=== PATIENT | male | born 1945 | race Caucasian/White ===

== ENCOUNTER 2022-08-14 13:02 | Emergency (ER) | payer MEDICARE ==
[~2022-08-14] VITALS: Ht 190.5 cm; Wt 83.9 kg
[~2022-08-14 13:02] MED LIST: ANTIBIOTIC PO; ASPI325 PO; ASPI81CH PO; B-121000 MC2 PO; CEPH500 PO; CHOL10002 PO; CIPR500 PO; Cipro500 MG PO; Crestor20 MG PO; ELIQUIS5 MG PO; HYDACE5 PO; LUPRON INJ; METO25 PO; METO25ER PO; MONOSTAT; NAPR500 PO; OXYACE5T PO; ROSU10TA PO; STOOL SOFTENER; SULTRIDS PO; WARF5 PO; WARF7.5 PO
[2022-08-14] MEDS ORDERED: CEPH500 PO ×2 (13:59→15:38)
[2022-08-14] MEDS ORDERED: XARELTO20 M1 PO (13:59)
== END 2022-08-14 15:45 | disposition home or self-care (01) ==
LOC: ER 13:02
DX: S61.241A Puncture wound with foreign body of left index finger without damage to nail, initial encounter (principal); W45.0XXA Nail entering through skin, initial encounter; W29.4XXA Contact with nail gun, initial encounter; Z87.891 Personal history of nicotine dependence; Z23 Encounter for immunization
CPT/HCPCS: 73140; 90714

== ENCOUNTER 2023-03-27 02:30 | Inpatient (IN) | payer MEDICARE ==
[~2023-03-27] VITALS: Ht 190.5 cm; Wt 86.2 kg
[~2023-03-27 02:30] MED LIST changes: +XARELTO20 M1 PO
[2023-03-27 05:27] LABS: Source, Urine Clean Catch
[2023-03-27 05:35] LABS: Appearance, Urine Cloudy (Clear); Bilirubin, Urine Neg (Neg); Blood, Urine 5+ (Neg); Color, Urine Yellow (P-Yellow); Glucose Qualitative, Urine Neg (Neg); Ketones, Urine 3+ (Neg); Leukocyte Esterase, Urine 3+ (Neg); Nitrite, Urine Neg (Neg); Protein, Urine 3+ (Neg); Urobilinogen, Urine NORM (Normal)
[2023-03-27 05:46] LABS: BASOPHILS ABSOLUTE AUTO 0.03 K/mm3 (0.00-0.23); BASOPHILS PERCENT AUTO 0 % (0-2); EOSINOPHILS ABSOLUTE AUTO 0.01 K/mm3 (0.00-0.68); EOSINOPHILS PERCENT AUTO 0 % (0-6); IMMATURE GRAN ABSOLUTE AUTO 0.07 K/mm3 (0.00-0.10); IMMATURE GRAN PERCENT AUTO 0 % (0-1); LYMPHOCYTES ABSOLUTE AUTO 0.89 K/mm3 (0.84-5.20); LYMPHOCYTES PERCENT AUTO 5 % (21-46); MONOCYTES ABSOLUTE AUTO 1.91 K/mm3 (0.16-1.47); MONOCYTES PERCENT AUTO 12 % (4-13); Mean Corpuscular HGB 28.1 pg (26.0-34.0); Mean Corpuscular HGB Conc 33.3 g/dL (31.5-36.5); Mean Corpuscular Volume 84 fL (80-100); Mean Platelet Volume 11.5 fL (9.1-12.4); NEUTROPHILS ABSOLUTE AUTO 13.61 K/mm3 (1.96-9.15); NEUTROPHILS PERCENT AUTO 82 % (41-73); Platelet Count 160 K/mm3 (150-400); RDW Coefficient Variation 13.8 % (11.7-14.2); RDW Standard Deviation 42.5 fL (35.1-46.3); White Blood Cell Count 16.52 K/mm3 (4.00-11.30)
[2023-03-27 06:01] LABS: Bacteria Many /hpf; Red Blood Cells, Urine 25-50 /hpf (0-2); Squamous Epithelial Cells Rare /hpf (Few)
[2023-03-27 06:04] LABS: Triple Phosphate Crystals Mod /hpf
[2023-03-27 06:20] LABS: Albumin, Blood 3.2 g/dL (3.4-5.0); Albumin/Globulin Ratio 0.8 (0.8-1.8); Bun/Creatinine Ratio 15.1 (12.0-20.0); Calcium, Blood 8.7 mg/dL (8.5-10.1); Creatinine, Blood 1.59 mg/dL (0.60-1.20); Globulin, Blood 3.9 g/dL (2.2-4.0); Potassium, Blood 4.4 mmol/L (3.5-5.5); Total Protein, Blood 7.1 g/dL (6.4-8.2)
[2023-03-27 13:53] VITALS: BP 166/65
--- NOTE | 2023-03-27 13:57 | NUR ---
ER ADMIT REPORT RECEIVED FROM ER. PT ALERT AND ORIENTED. DENIED DISCOMFORT UPON ARRIVED TO RM 324. PT ABLE TO TRANSFER SELF TO NEW BED. DENIED DIZZINESS. VSS. IVF INFUSING AT 75 ML/HR. CONTINUE POC.
[2023-03-27 15:53] VITALS: BP 134/62
[2023-03-27 20:04] VITALS: BP 143/51
[2023-03-28 03:53] VITALS: BP 169/76
--- NOTE | 2023-03-28 04:11 | NUR ---
SHIFT SUMMARY PATIENT HAD NO ACUTE CHANGES. AXOX 4 AND SBA TO BSC. UROSTOMY INTACT AND PATIENT REPORTS SELF CARE. FLANK PAIN X ONE AND NORCO GIVEN PER EMAR. DENIES CHEST PAIN, SOB, AND N/V. LOW GRADE TEMP. NPO FOR POSSIBLE PROCEDURE TODAY. SLEPT MOST OF SHIFT. COOPERATIVE WITH CARE. CALL LIGHT IN REACH. BED IN LOWEST POSITION. WILL CONTINUE TO MONITOR UNTIL DAY SHIFT NURSE ASSUMES CARE.
[2023-03-28 05:45] LABS: BASOPHILS ABSOLUTE AUTO 0.05 K/mm3 (0.00-0.23); BASOPHILS PERCENT AUTO 0 % (0-2); EOSINOPHILS ABSOLUTE AUTO 0.07 K/mm3 (0.00-0.68); EOSINOPHILS PERCENT AUTO 1 % (0-6); Hematocrit 48.5 % (37.0-53.0); Hemoglobin 16.1 g/dL (13.5-17.5); IMMATURE GRAN ABSOLUTE AUTO 0.09 K/mm3 (0.00-0.10); IMMATURE GRAN PERCENT AUTO 1 % (0-1); LYMPHOCYTES ABSOLUTE AUTO 0.95 K/mm3 (0.84-5.20); LYMPHOCYTES PERCENT AUTO 8 % (21-46); MONOCYTES PERCENT AUTO 18 % (4-13); Mean Corpuscular HGB 28.1 pg (26.0-34.0); Mean Corpuscular HGB Conc 33.2 g/dL (31.5-36.5); Mean Corpuscular Volume 85 fL (80-100); Mean Platelet Volume 12.1 fL (9.1-12.4); NEUTROPHILS ABSOLUTE AUTO 8.49 K/mm3 (1.96-9.15); NEUTROPHILS PERCENT AUTO 72 % (41-73); Platelet Count 107 K/mm3 (150-400); RDW Coefficient Variation 13.8 % (11.7-14.2); RDW Standard Deviation 42.5 fL (35.1-46.3); Red Blood Cell Count 5.73 M/mm3 (4.30-5.90); White Blood Cell Count 11.75 K/mm3 (4.00-11.30)
[2023-03-28 05:50] LABS: Bun/Creatinine Ratio 17.3 (12.0-20.0); Calcium, Blood 8.7 mg/dL (8.5-10.1); Creatinine, Blood 1.5 mg/dL (0.60-1.20); Potassium, Blood 4.4 mmol/L (3.5-5.5)
[2023-03-28 07:32] VITALS: BP 153/75
[2023-03-28 15:41] VITALS: BP 141/80
--- NOTE | 2023-03-28 16:24 | NUR ---
NOTE PT ALERT. AT BEDSIDE. DR GRECO CALLED DR ALCANTAR. HE WAS UNAWARE THAT HE WAS NEEDED TODAY. DR ALCANTAR WILL SEE PT IN THE MORNING. NPO AFTER MIDNIGHT. HAVE NOT NEEDED TO MEDICATE PT FOR PAIN AT ALL TODAY. HE HAS BEEN UP AD JESIKA. IS BRINGING IN HIS NIGHT BAG AND A SPARE APPLIANCE FOR HIS UROSTOMY. REGULAR DIET. CONTINUE POC.
[2023-03-28 19:36] VITALS: BP 128/64
--- NOTE | 2023-03-29 04:11 | NUR ---
SHIFT SUMMARY PATIENT HAD NO ACUTE CHANGES. AXOX 4 AND INDEPENDENT IN ROOM. UROSTOMY INTACT AND SELF CARE. NPO FOR POSSIBLE PROCEDURE TODAY. VSS/AFEBRILE. DENIES CHEST PAIN, SOB, AND N/V. REPORTED FLANK PAIN AND NORCO GIVEN PER EMAR. CALL LIGHT IN REACH. BED IN LOWEST POSITION. WILL CONTINUE TO MONITOR UNTIL DAY SHIFT NURSE ASSUMES CARE.
[2023-03-29 05:21] VITALS: BP 123/84
[2023-03-29 05:37] LABS: BASOPHILS ABSOLUTE AUTO 0.04 K/mm3 (0.00-0.23); BASOPHILS PERCENT AUTO 0 % (0-2); EOSINOPHILS ABSOLUTE AUTO 0.01 K/mm3 (0.00-0.68); EOSINOPHILS PERCENT AUTO 0 % (0-6); Hematocrit 46.9 % (37.0-53.0); Hemoglobin 15.7 g/dL (13.5-17.5); IMMATURE GRAN ABSOLUTE AUTO 0.03 K/mm3 (0.00-0.10); IMMATURE GRAN PERCENT AUTO 0 % (0-1); LYMPHOCYTES ABSOLUTE AUTO 0.62 K/mm3 (0.84-5.20); LYMPHOCYTES PERCENT AUTO 6 % (21-46); MONOCYTES ABSOLUTE AUTO 1.79 K/mm3 (0.16-1.47); MONOCYTES PERCENT AUTO 18 % (4-13); Mean Corpuscular HGB Conc 33.5 g/dL (31.5-36.5); Mean Corpuscular Volume 84 fL (80-100); Mean Platelet Volume 12.2 fL (9.1-12.4); NEUTROPHILS ABSOLUTE AUTO 7.68 K/mm3 (1.96-9.15); NEUTROPHILS PERCENT AUTO 76 % (41-73); Platelet Count 153 K/mm3 (150-400); RDW Coefficient Variation 13.5 % (11.7-14.2); RDW Standard Deviation 41.5 fL (35.1-46.3); Red Blood Cell Count 5.61 M/mm3 (4.30-5.90); White Blood Cell Count 10.17 K/mm3 (4.00-11.30)
[2023-03-29 06:01] LABS: Bun/Creatinine Ratio 23.4 (12.0-20.0); Calcium, Blood 8.8 mg/dL (8.5-10.1); Creatinine, Blood 1.37 mg/dL (0.60-1.20); Potassium, Blood 4.1 mmol/L (3.5-5.5)
[2023-03-29 07:49] VITALS: BP 122/68
[2023-03-29 15:30] VITALS: BP 127/67
[2023-03-29 19:20] VITALS: BP 123/69
[2023-03-30 04:56] VITALS: BP 124/76
--- NOTE | 2023-03-30 05:32 | NUR ---
SHIFT SUMMARY PT A&OX4, AND COOPERATIVE WITH CARE. NO ACUTE CHANGES, VSS. PT RESTED MAJORITY OF SHIFT. TOLERATING PO INTAKE. PT HAS BEEN WORRIED ABOUT HAVING A BOWEL MOVEMENT, GAVE PRUNE JUICE WITH HIS EVENING MEDS, OTHERWISE NPO SINCE MIDNIGHT. INDEPENDENT IN ROOM/BATHROOM. PT MANAGES UROSTOMY HIMSELF. CALLS APPROPRIATELY, CALL LIGHT WITHIN REACH.
[2023-03-30 08:09] VITALS: BP 113/83
--- NOTE | 2023-03-30 11:51 | NUR ---
RETURN FROM [facility] PLACEMENT OF NEPHROSTOMY TUBE IN THE L FLANK IN [facility] AND PT NOW BACK IN ROOM. RESTING IN BED.
[2023-03-30 11:52] VITALS: BP 125/69
[2023-03-30 16:06] VITALS: BP 105/71
--- NOTE | 2023-03-30 17:31 | NUR ---
SHIFT SUMMARY PT HAD NEPHROSTOMY PLACED TO L FLANK THIS AM. DRAINING RED URINE OUTPUT. 150 TOTAL THIS SHIFT. PT PAIN NOT WELL MANAGED, BUT IMPROVING. LAST REPORTED A 8/10 PAIN LEVEL. PT PHYSICALLY APPEARS MORE COMFORTABLE THAN EARLIER IN THE DAY ALSO. SEE EMAR FOR PAIN WEIGHER PACKING. NO OTHER ACUTE CHANGES IN ASSESSMENT AT THIS TIME. VS REVIEWED. CALL LIGHT IN REACH. DENIES OTHER NEEDS AT THIS TIME
[2023-03-30 19:29] VITALS: BP 121/70
[2023-03-31 04:50] VITALS: BP 145/71
--- NOTE | 2023-03-31 05:59 | NUR ---
NO SIGNIFICANT CHANGES DURING SHIFT. INTERMITTENT PAIN WITH MOVEMENT/ACTIVITY. DENIES NEED FOR PAIN MEDS, LAST NORCO GIVEN AT 03/30. MINIMAL SANGUINEOUS OUTPUT FROM NEPH TUBE. MANAGES UROSTOMY INDEPENDENTLY. STATES HE FEELS READY TO GO HOME TODAY.
[2023-03-31 08:21] VITALS: BP 135/61
[2023-03-31] MEDS ORDERED: ACET325 PO (11:03)
[2023-03-31] MEDS ORDERED: CIPR250 PO (11:03)
[2023-03-31] MEDS ORDERED: DOCU100 PO (11:04)
[2023-03-31] MEDS ORDERED: HYDROCODONE-AC1 EAC7 PO (11:04)
[2023-03-31] MEDS ORDERED: SENN187 PO (11:05)
[2023-03-31] MEDS ORDERED: VISBIOME 112.51 EACH PO (11:06)
--- NOTE | 2023-03-31 12:30 | NUR ---
DISCHARGE SUMMARY PATIENT DISCHARGED TO HOME. DISCHARGE INSTRUCTIONS REVIEWED WITH PATIENT AND . IV DC'D. CATHETER INTACT. SUPPLIES GIVEN FOR NEPHROSTOMY TUBING DRESSINGS AND EXTRA BAG. REVIEWED SIGNS OF INFECTION AND WHAT TO REPORT. DRAINAGE FROM NEPHROSTOMY CONTINUES TO BE CLOUDY BURGUNDY FLUID. UROSTOMY STOMA DRAINING JHONY URINE. PATIENT TO FOLLOW UP WITH DR ALCANTAR IN ONE WEEK FOR POSSIBLE REMOVAL. PATIENT ESCORTED OUT VIA WHEELCHAIR. ROOM CHECK DONE WITH AND BELONGINGS SENT HOME WITH PATIENT.
== END 2023-03-31 12:30 | disposition home or self-care (01) | DRG 872 ==
LOC: ER 02:30 → MEDS 09:07
PROVIDERS: Student in an Organized Health Care Education/Training Program; ADMIT Internal Medicine
PROC: 3E03329 Introduction of Other Anti-infective into Peripheral Vein, Percutaneous Approach (ICD-10-PCS; 2023-03-27)
PROC: 0T9130Z Drainage of Left Kidney with Drainage Device, Percutaneous Approach (ICD-10-PCS; principal; 2023-03-30)
PROC: 0T773DZ Dilation of Left Ureter with Intraluminal Device, Percutaneous Approach (ICD-10-PCS; 2023-03-30)
PROC: BT42ZZZ Ultrasonography of Left Kidney (ICD-10-PCS; 2023-03-30)
PROC: BT1F1ZZ Fluoroscopy of Left Kidney, Ureter and Bladder using Low Osmolar Contrast (ICD-10-PCS; 2023-03-30)
DX: A41.9 Sepsis, unspecified organism (principal); N13.6 Pyonephrosis; I73.9 Peripheral vascular disease, unspecified; I25.10 Atherosclerotic heart disease of native coronary artery without angina pectoris; I48.0 Paroxysmal atrial fibrillation; K43.5 Parastomal hernia without obstruction or gangrene; B96.89 Other specified bacterial agents as the cause of diseases classified elsewhere; Z85.46 Personal history of malignant neoplasm of prostate; Z85.51 Personal history of malignant neoplasm of bladder; Z98.890 Other specified postprocedural states; Z90.79 Acquired absence of other genital organ(s); Z93.6 Other artificial openings of urinary tract status; Z95.1 Presence of aortocoronary bypass graft; Z90.49 Acquired absence of other specified parts of digestive tract; Z86.79 Personal history of other diseases of the circulatory system; Z87.891 Personal history of nicotine dependence; Z90.89 Acquired absence of other organs; Z79.01 Long term (current) use of anticoagulants
CPT/HCPCS: 36415; 50695; 74177; 76705; 76937; 80048; 80053; 81001; 83605; 85025; 87040; 87077; 87086; 87186; 94760; 96365-59; 96367; 96375; 99152; 99153; 99285-25; A9270; C1729; C1769; C1887; C1894; C2617; J0696; J0744; J1170; J2250; J2405; J3010; J7030; Q9967

== ENCOUNTER → 2023-08-23 | Outpatient (CLI) | payer MEDICARE ==
[~2023-08-23] MED LIST changes: +ACET325 PO; +CIPR250 PO; +DOCU100 PO; +HYDROCODONE-AC1 EAC7 PO; +SENN187 PO; +VISBIOME 112.51 EACH PO
== END ==
LOC: LAB SHORT 18:54 → LAB 18:54
DX: N39.0 Urinary tract infection, site not specified (principal)
CPT/HCPCS: 87077; 87086; 87186

== ENCOUNTER 2023-11-02 15:12 | Inpatient (IN) | payer MEDICARE ==
[~2023-11-02] VITALS: Ht 190.5 cm; Wt 81.0 kg
[~2023-11-02 15:12] MED LIST changes: -CEPH500; -IRON18 MG; -METO50ER PO; -OMEP20ER PO; -ROSUVASTATIN CA20 MG PO; -VITAMIN B12500 MCG; -Vitamin D1000 UNI1
[2023-11-02 15:44] LABS: BASOPHILS ABSOLUTE AUTO 0.04 K/mm3 (0.00-0.23); BASOPHILS PERCENT AUTO 0 % (0-2); EOSINOPHILS ABSOLUTE AUTO 0.66 K/mm3 (0.00-0.68); EOSINOPHILS PERCENT AUTO 7 % (0-6); Hematocrit 22.9 % (37.0-53.0); Hemoglobin 7.1 g/dL (13.5-17.5); IMMATURE GRAN ABSOLUTE AUTO 0.06 K/mm3 (0.00-0.10); IMMATURE GRAN PERCENT AUTO 1 % (0-1); LYMPHOCYTES PERCENT AUTO 14 % (21-46); MONOCYTES ABSOLUTE AUTO 1.14 K/mm3 (0.16-1.47); MONOCYTES PERCENT AUTO 12 % (4-13); Mean Corpuscular HGB 26.4 pg (26.0-34.0); Mean Corpuscular Volume 85 fL (80-100); Mean Platelet Volume 10.7 fL (9.1-12.4); NEUTROPHILS ABSOLUTE AUTO 6.29 K/mm3 (1.96-9.15); NEUTROPHILS PERCENT AUTO 66 % (41-73); Platelet Count 279 K/mm3 (150-400); RDW Coefficient Variation 14.6 % (11.7-14.2); RDW Standard Deviation 44.7 fL (35.1-46.3); Red Blood Cell Count 2.69 M/mm3 (4.30-5.90); White Blood Cell Count 9.49 K/mm3 (4.00-11.30)
[2023-11-02 16:08] LABS: Albumin, Blood 2.8 g/dL (3.4-5.0); Albumin/Globulin Ratio 0.7 (0.8-1.8); Bilirubin, Total 0.3 mg/dL (0.1-1.0); Bun/Creatinine Ratio 25.2 (12.0-20.0); Calcium, Blood 8.6 mg/dL (8.5-10.1); Creatinine, Blood 1.35 mg/dL (0.60-1.20); Globulin, Blood 3.8 g/dL (2.2-4.0); Potassium, Blood 4.2 mmol/L (3.5-5.5); Total Protein, Blood 6.6 g/dL (6.4-8.2)
[2023-11-02] MEDS ORDERED: CEPH500 (19:24)
[2023-11-02] MEDS ORDERED: METO50ER PO (19:24)
[2023-11-02] MEDS ORDERED: IRON18 MG (19:25)
[2023-11-02] MEDS ORDERED: ROSUVASTATIN CA20 MG PO (19:25)
[2023-11-02] MEDS ORDERED: Vitamin D1000 UNI1 (19:25)
[2023-11-02] MEDS ORDERED: VITAMIN B12500 MCG (19:26)
[2023-11-02 20:55] LABS: Hematocrit 19.4 % (37.0-53.0); Hemoglobin 6.1 g/dL (13.5-17.5)
[2023-11-02 21:01] LABS: Source, Urine Urostomy Bag
[2023-11-02 21:04] LABS: Appearance, Urine Hazy (Clear); Bilirubin, Urine Neg (Neg); Blood, Urine 1+ (Neg); Color, Urine Yellow (P-Yellow); Glucose Qualitative, Urine Neg (Neg); Ketones, Urine Neg (Neg); Leukocyte Esterase, Urine 2+ (Neg); Nitrite, Urine Neg (Neg); Protein, Urine 2+ (Neg); Specific Gravity, Urine 1.015 (1.003-1.022); Urobilinogen, Urine NORM (Normal)
[2023-11-02 21:15] LABS: Bacteria Many /hpf; Hyaline Casts 0-2 /lpf (0-2); Renal Epithelial Rare /hpf (0-Rare); Squamous Epithelial Cells Few /hpf (Few); Triple Phosphate Crystals Rare /hpf; White Blood Cells, Urine 25-50 /hpf (0-5)
[2023-11-02 21:53] VITALS: BP 117/56
[2023-11-02 22:15] VITALS: BP 115/58
--- NOTE | 2023-11-02 22:45 | NUR ---
TRANSFER NOTE THIS RN RECEIVED REPORT FROM LYUBOV LIM IN THE ED. PT TO PCU AT 2145. PT ABLE TO AMBULATE FROM GURNEY TO BED INDEPENDENTLY. DENIED DIZZINESS/SOB. SR ON MONITOR. BP STABLE. ON RA WITH SPO2 >92%. PT CONSENTED TO BLOOD TRANSFUSION. BLOOD STARTED. MD MARROQUIN TO BEDSIDE TO EVAL PT AND DISCUSS PLAN FOR SCOPE TOMORROW. PT WILL BE ON CLEAR LIQUID DIET UNTIL 0700 11/03, AND THEN WATER ONLY, NPO AT 1200 FOR SCOPE. MD MARROQUIN WITH VERBAL TO GIVE X2 UNITS OF PRBC'S. PT A&O X4. ABLE TO MAKE NEEDS KNOWN. BED IN LOWEST POSITION AND CALL LIGHT WITHIN REACH.
[2023-11-02 23:13] VITALS: BP 97/45
[2023-11-03] VITALS (28 sets, daily range): BP systolic 88–151; BP diastolic 46–71
--- NOTE | 2023-11-03 04:38 | NUR ---
SHIFT SUMMARY SEE PREVIOUS NOTE. 2 UNITS OF PRBC'S INFUSED. BP STABLE AT THIS TIME BUT HAS BEEN SOFTER DURING THIS SHIFT. ON RA WITH SPO2 >92%. DENIES CP, SOB, AND DIZZINESS. SR WITH HR 70-80'S. UROSTOMY DRAINING CLEAR YELLOW URINE, PT ABLE TO MANAGE INDEPENDENTLY. PT REPORTS GAS BUT NO NOTED BM'S. DENIES N/V. NS INFUSING PER EMAR. PT ABLE TO REPOSITION SELF INDEPENDENTLY. AWAITING REPEAT H/H RESULTS. BED IN LOWEST POSITION AND CALL LIGHT WITHIN REACH. THIS RN WILL REPORT TO ONCOMING DAYSHIFT RN.
[2023-11-03 04:44] LABS: Hematocrit 25.6 % (37.0-53.0); Hemoglobin 8.4 g/dL (13.5-17.5)
[2023-11-03 05:15] LABS: Albumin, Blood 2.3 g/dL (3.4-5.0); Albumin/Globulin Ratio 0.7 (0.8-1.8); Bun/Creatinine Ratio 22.7 (12.0-20.0); Calcium, Blood 7.7 mg/dL (8.5-10.1); Creatinine, Blood 1.28 mg/dL (0.60-1.20); Globulin, Blood 3.4 g/dL (2.2-4.0); Potassium, Blood 4.1 mmol/L (3.5-5.5); Total Protein, Blood 5.7 g/dL (6.4-8.2)
--- NOTE | 2023-11-03 08:48 | NUR ---
THIS RN TO MEDICATED PT WHEN PT REPORTS HIS NORMAL DOSE OF METOPROLOL IS 25MG ONCE DAILY. CALLED AND NOTFIED. ORDERS GIVEN TO ADJUST MED TO HOME DOSE. PT MEDICATED PER MD ORDERS SEE EMAR.
[2023-11-03 09:19] LABS: Hematocrit 26.2 % (37.0-53.0); Hemoglobin 8.5 g/dL (13.5-17.5)
[2023-11-03 12:29] LABS: Hematocrit 26.1 % (37.0-53.0); Hemoglobin 8.4 g/dL (13.5-17.5)
--- NOTE | 2023-11-03 17:00 | NUR ---
PT TO DAY SURGERY AT 1700 VIA WHEELCHAIR WITH SURG STAFF.
--- NOTE | 2023-11-03 17:30 | NUR ---
History, Chart, Medications and Allergies reviewed before start of procedure. Pre-Op teaching done. Pt verbalizes understanding. Patient confirms NPO status and agrees with scheduled surgery.
--- NOTE | 2023-11-03 18:04 | NUR ---
SHIFT SUMMARY PT AOX4. OBEYS COMMANDS AND CALLS APPROPRIATELY. VSS. BREATHING EVEN AND NON LABORED SPO2>92% RA. PT DENIES CHEST PAIN/SOB. PT WITH BOWEL MOVEMENT TODAY SEE CHARTING. PT NPO STARTING AT 1200 TODAY. PT TO DAY SURGERY FOR COLONOSCOPY/ENDOSCOPY AT APPROX 1700. PT ABLE TO CHANGE POSITIONS IN BED INDEPENDENTLY. PT WITH SMALL WOUND TO COCCYX, PT REPORTS WAS PRESENT BEFORE ADMISSION, PHOTO TAKE IN CHART AND DRESS WITH PADDED BANDAGE. NO ACUTE CHANGES.
--- NOTE | 2023-11-03 18:15 | NUR ---
11/03/23 1815 Ana Maria Acevedo HISTORY, CHART, MEDICATIONS AND ALLERGIES REVIEWED BEFORE START OF PROCEDURE. PATIENT CONFIRMS NPO STATUS AND AGREES WITH SCHEDULED PROCEDURE. 3-LEAD EKG REVIEWED WITH PHYSICIAN PRIOR TO START OF PROCEDURE. MONITOR INTACT WITH CONTINUOUS PULSE OXIMETRY,CAPNOGRAPHY, 3-LEAD EKG, INTERMITTENT BP. SUPPLEMENTAL O2 TO BE TITRATED THROUGHOUT PROCEDURE TO MAINTAIN O2 SATURATION ABOVE 90%. PATIENT DETERMINED TO BE ASA APPROPRIATE FOR PROPOFOL SEDATION PRIOR TO START OF PROCEDURE BY .MALLAMPATI CLASS 2 AIRWAY: COMPLETE VISUALIZATION OF THE UVULA.OROPHARYNX SPRAYED WITH 4% LIDOCAINE PRIOR TO PLACEMENT OF BITE BLOCK.
[2023-11-04 03:46] LABS: BASOPHILS ABSOLUTE AUTO 0.02 K/mm3 (0.00-0.23); BASOPHILS PERCENT AUTO 0 % (0-2); EOSINOPHILS ABSOLUTE AUTO 0.61 K/mm3 (0.00-0.68); EOSINOPHILS PERCENT AUTO 9 % (0-6); Hematocrit 25.9 % (37.0-53.0); Hemoglobin 8.4 g/dL (13.5-17.5); IMMATURE GRAN ABSOLUTE AUTO 0.03 K/mm3 (0.00-0.10); IMMATURE GRAN PERCENT AUTO 1 % (0-1); LYMPHOCYTES ABSOLUTE AUTO 0.86 K/mm3 (0.84-5.20); LYMPHOCYTES PERCENT AUTO 13 % (21-46); MONOCYTES ABSOLUTE AUTO 0.88 K/mm3 (0.16-1.47); MONOCYTES PERCENT AUTO 14 % (4-13); Mean Corpuscular HGB 26.9 pg (26.0-34.0); Mean Corpuscular HGB Conc 32.4 g/dL (31.5-36.5); Mean Corpuscular Volume 83 fL (80-100); Mean Platelet Volume 10.4 fL (9.1-12.4); NEUTROPHILS ABSOLUTE AUTO 4.11 K/mm3 (1.96-9.15); NEUTROPHILS PERCENT AUTO 63 % (41-73); Platelet Count 229 K/mm3 (150-400); RDW Coefficient Variation 14.5 % (11.7-14.2); RDW Standard Deviation 43.8 fL (35.1-46.3); Red Blood Cell Count 3.12 M/mm3 (4.30-5.90); White Blood Cell Count 6.51 K/mm3 (4.00-11.30)
[2023-11-04 03:47] VITALS: BP 123/57
[2023-11-04 04:10] LABS: Bun/Creatinine Ratio 18.8 (12.0-20.0); Calcium, Blood 7.5 mg/dL (8.5-10.1); Creatinine, Blood 1.38 mg/dL (0.60-1.20)
--- NOTE | 2023-11-04 04:43 | NUR ---
SHIFT SUMMARY NO ACUTE CHANGES OVERNIGHT. PT ARRIVED FROM SCOPE AT SHIFT CHANGE. VITALS REMAINED STABLE T/O THIS SHIFT. NO DARK STOOLS OF N/V. HGB STABLE THIS AM ON LABS. PT SBA TO BATHROOM. PT EMPTYING UROSTOMY INDEPENDENTLY INTO URINAL. A&O X4. ABLE TO MAKE NEEDS KNOWN. NS INFUSING PER EMAR. BED IN LOWEST POSITION AND CALL LIGHT WITHIN REACH. THIS RN WILL REPORT TO ONCOMING DAYSHIFT RN.
[2023-11-04 07:16] VITALS: BP 114/61
[2023-11-04] MEDS ORDERED: OMEP20ER PO (09:12)
[2023-11-04] MEDS ORDERED: ASPI81CH PO (10:45)
== END 2023-11-04 11:10 | disposition home or self-care (01) | DRG 378 ==
LOC: ER 15:12 → PCU 19:47
PROVIDERS: Family Medicine; Internal Medicine Gastroenterology; Physician Assistant; Student in an Organized Health Care Education/Training Program; ADMIT Internal Medicine
PROC: 0W3P8ZZ Control Bleeding in Gastrointestinal Tract, Via Natural or Artificial Opening Endoscopic (ICD-10-PCS; principal; 2023-11-03 14:00)
DX: K55.21 Angiodysplasia of colon with hemorrhage (principal); D62 Acute posthemorrhagic anemia; D68.9 Coagulation defect, unspecified; K25.4 Chronic or unspecified gastric ulcer with hemorrhage; I48.0 Paroxysmal atrial fibrillation; I25.10 Atherosclerotic heart disease of native coronary artery without angina pectoris; E78.5 Hyperlipidemia, unspecified; N18.30 Chronic kidney disease, stage 3 unspecified; I73.9 Peripheral vascular disease, unspecified; D50.9 Iron deficiency anemia, unspecified; I12.9 Hypertensive chronic kidney disease with stage 1 through stage 4 chronic kidney disease, or unspecified chronic kidney disease; I35.0 Nonrheumatic aortic (valve) stenosis; K44.9 Diaphragmatic hernia without obstruction or gangrene; Z93.6 Other artificial openings of urinary tract status; Z85.46 Personal history of malignant neoplasm of prostate; Z85.51 Personal history of malignant neoplasm of bladder; Z95.1 Presence of aortocoronary bypass graft; Z90.49 Acquired absence of other specified parts of digestive tract; Z90.89 Acquired absence of other organs; Z90.5 Acquired absence of kidney; Z90.79 Acquired absence of other genital organ(s); Z79.899 Other long term (current) drug therapy; Z79.01 Long term (current) use of anticoagulants; Z87.440 Personal history of urinary (tract) infections; Z87.891 Personal history of nicotine dependence; I25.2 Old myocardial infarction; Z86.79 Personal history of other diseases of the circulatory system
CPT/HCPCS: 36415; 80048; 80053; 81001; 82272; 85014; 85018; 85025; 86850; 86900; 86901; 86923; 87077; 87086; 87186; 93005; 93010; 96374; 96376; 99285-25; A9270; C9113; J2001; J2704; J7030; J7040; J7120; P9016

== ENCOUNTER → 2023-11-02 | Outpatient (CLI) | payer MEDICARE ==
[~2023-11-02] MED LIST changes: +CEPH500; +IRON18 MG; +METO50ER PO; +OMEP20ER PO; +ROSUVASTATIN CA20 MG PO; +VITAMIN B12500 MCG; +Vitamin D1000 UNI1
[2023-11-02 12:25] LABS: BASOPHILS ABSOLUTE AUTO 0.05 K/mm3 (0.00-0.23); BASOPHILS PERCENT AUTO 1 % (0-2); EOSINOPHILS ABSOLUTE AUTO 0.75 K/mm3 (0.00-0.68); EOSINOPHILS PERCENT AUTO 7 % (0-6); Hematocrit 23.6 % (37.0-53.0); Hemoglobin 7.4 g/dL (13.5-17.5); IMMATURE GRAN ABSOLUTE AUTO 0.08 K/mm3 (0.00-0.10); IMMATURE GRAN PERCENT AUTO 1 % (0-1); LYMPHOCYTES ABSOLUTE AUTO 1.36 K/mm3 (0.84-5.20); LYMPHOCYTES PERCENT AUTO 13 % (21-46); MONOCYTES PERCENT AUTO 13 % (4-13); Mean Corpuscular HGB Conc 31.4 g/dL (31.5-36.5); Mean Corpuscular Volume 83 fL (80-100); NEUTROPHILS PERCENT AUTO 66 % (41-73); Platelet Count 304 K/mm3 (150-400); RDW Coefficient Variation 14.5 % (11.7-14.2); RDW Standard Deviation 43.7 fL (35.1-46.3); Red Blood Cell Count 2.85 M/mm3 (4.30-5.90); White Blood Cell Count 10.44 K/mm3 (4.00-11.30)
[2023-11-02 12:46] LABS: International Normalized Ratio 1.02; Prothrombin Time Results 10.7 Sec (9.7-11.5)
[2023-11-02 12:58] LABS: Albumin, Blood 2.8 g/dL (3.4-5.0); Albumin/Globulin Ratio 0.7 (0.8-1.8); Bilirubin, Total 0.5 mg/dL (0.1-1.0); Bun/Creatinine Ratio 25.8 (12.0-20.0); Calcium, Blood 8.3 mg/dL (8.5-10.1); Creatinine, Blood 1.28 mg/dL (0.60-1.20); Globulin, Blood 4.2 g/dL (2.2-4.0); Percent Saturation 3.5 % (20.0-50.0)
== END ==
LOC: LAB SHORT 11:36 → LAB 11:36
PROVIDERS: Nurse Practitioner Family
DX: R30.0 Dysuria (principal); R42 Dizziness and giddiness; R53.1 Weakness; D62 Acute posthemorrhagic anemia
CPT/HCPCS: 80053; 82728; 83540; 83550; 85025; 85610; 85730; 87086

== ENCOUNTER 2024-02-14 18:41 | Emergency (ER) | payer MEDICARE ==
[~2024-02-14] VITALS: Ht 190.5 cm; Wt 86.2 kg
[2024-02-14 18:53] VITALS: BP 173/97
== END 2024-02-14 20:17 | disposition left against medical advice (07) ==
LOC: ER 18:41
DX: R10.9 Unspecified abdominal pain (principal); Z53.21 Procedure and treatment not carried out due to patient leaving prior to being seen by health care provider

== ENCOUNTER → 2024-04-17 | Outpatient (CLI) | payer MEDICARE ==
[~2024-04-17] MED LIST changes: +CEPH500; +IRON18 MG; +METO50ER PO; +OMEP20ER PO; +ROSUVASTATIN CA20 MG PO; +VITAMIN B12500 MCG; +Vitamin D1000 UNI1
[2024-04-17 18:18] LABS: Percent Saturation 34.5 % (20.0-50.0)
== END | disposition home or self-care (01) ==
LOC: LAB 10:30 → LAB SHORT 10:30
PROVIDERS: Internal Medicine Hematology & Oncology
DX: E61.1 Iron deficiency (principal)
CPT/HCPCS: 82728; 83540; 83550

== ENCOUNTER → 2024-06-23 | Outpatient (CLI) | payer MEDICARE ==
[2024-06-23 18:56] LABS: BASOPHILS ABSOLUTE AUTO 0.07 K/mm3 (0.00-0.23); BASOPHILS PERCENT AUTO 1 % (0-2); EOSINOPHILS ABSOLUTE AUTO 0.27 K/mm3 (0.00-0.68); EOSINOPHILS PERCENT AUTO 4 % (0-6); Hematocrit 43.5 % (37.0-53.0); Hemoglobin 13.9 g/dL (13.5-17.5); IMMATURE GRAN ABSOLUTE AUTO 0.02 K/mm3 (0.00-0.10); IMMATURE GRAN PERCENT AUTO 0 % (0-1); LYMPHOCYTES ABSOLUTE AUTO 1.07 K/mm3 (0.84-5.20); LYMPHOCYTES PERCENT AUTO 16 % (21-46); MONOCYTES ABSOLUTE AUTO 0.77 K/mm3 (0.16-1.47); MONOCYTES PERCENT AUTO 11 % (4-13); Mean Corpuscular HGB 28.5 pg (26.0-34.0); Mean Corpuscular Volume 89 fL (80-100); Mean Platelet Volume 12.2 fL (9.1-12.4); NEUTROPHILS ABSOLUTE AUTO 4.57 K/mm3 (1.96-9.15); NEUTROPHILS PERCENT AUTO 68 % (41-73); Platelet Count 163 K/mm3 (150-400); RDW Coefficient Variation 15.5 % (11.7-14.2); RDW Standard Deviation 50.8 fL (35.1-46.3); Red Blood Cell Count 4.87 M/mm3 (4.30-5.90); White Blood Cell Count 6.77 K/mm3 (4.00-11.30)
== END ==
LOC: LAB SHORT 16:55 → LAB 16:55
PROVIDERS: Internal Medicine Hematology & Oncology
DX: E61.1 Iron deficiency (principal)
CPT/HCPCS: 85025